=== PATIENT | male | born 1955 | race Caucasian/White ===

== ENCOUNTER 2022-08-23 19:30 | Emergency (ER) | payer MEDICARE, OTHER ==
[~2022-08-23] VITALS: Ht 172.7 cm; Wt 85.3 kg
[2022-08-23] MEDS ORDERED: IV NORMAL SALINE 1000 ML BAG IV ONE (19:45)
[2022-08-23 20:00] LABS: HEMATOCRIT 32.9 % (36.7-47.1); MEAN CORPUSCULAR HEMOGLOBIN 34.5 uug (23.8-33.4); MEAN CORPUSCULAR VOLUME 105.7 fL (73.0-96.2); PLATELET COUNT (AUTO) 80 K/uL (152-348)
[2022-08-23 20:22] LABS: ETHANOL 422 MG/DL (0-0)
[2022-08-23 20:42] LABS: CARBON DIOXIDE 27 mmol/L (21-32); CHLORIDE 109 mmol/L (98-107); CREATININE 0.9 mg/dL (0.6-1.3); GLUCOSE 63 mg/dL (74-106); POTASSIUM 3.2 mmol/L (3.5-5.1); UREA NITROGEN, BLOOD 22 mg/dL (7-18)
[2022-08-23 20:47] LABS: ALANINE AMINOTRANSFERASE 63 U/L (16-63); ALKALINE PHOSPHATASE 92 U/L (50-136); ASPARTATE AMINOTRANSFERASE 93 U/L (15-37); BILIRUBIN,DIRECT 0.2 mg/dL (0.0-0.2); BILIRUBIN,TOTAL 0.6 mg/dL (0.2-1.0)
[2022-08-23 20:48] LABS: ACETAMINOPHEN < 2.0 ug/mL (10-30)
[2022-08-23] MEDS ORDERED: IV D5/ 0.9% NACL 1,000 ML IV ONE (21:00)
[2022-08-23] MEDS ORDERED: MAGNESIUM SULFATE/D5W 100 ML IV SCH (21:00)
[2022-08-23] MEDS ORDERED: POTASSIUM CHLORIDE 20 MEQ TAB.PRT.SR PO ONE (21:00)
[2022-08-23] MEDS ORDERED: POTASSIUM CHLORIDE 20 MEQ TAB.PRT.SR ONE (21:20)
[2022-08-23] MEDS ORDERED: MAGNESIUM SULFATE/D5W 300 ML ONE (21:20)
--- NOTE | 2022-08-23 21:33 | NUR ---
Dr Cleaning canceled 3rd bag of Magnesium
[2022-08-23] MEDS: MAGNESIUM SULFATE/D5W 100 ML IV SCH ×2 (21:34→22:21)
[2022-08-23 21:44] LABS: THYROID STIMULATING HORMONE 0.377 mIU/mL (0.358-3.740)
[2022-08-23] MEDS ORDERED: LORA2TAB95 PO (23:15)
--- NOTE | 2022-08-23 23:15 | NUR ---
called patient's son. Made aware that patient is getting discharged
--- NOTE | 2022-08-23 23:57 | NUR ---
Patient discharged to home in stable condition. Written and verbal after care instructions given. Patient's son verbalizes understanding of instructions. Stressed follow up or return to ER for worsening s/s. Patient is a/ox4, NAD noted, patient is able to walk with steady gait
[2022-08-23 23:58] VITALS: BP 120/81
== END 2022-08-23 23:59 | disposition home or self-care (01) ==
LOC: ER 19:39
DX: F10.229 Alcohol dependence with intoxication, unspecified (principal); Y90.8 Blood alcohol level of 240 mg/100 ml or more; D53.9 Nutritional anemia, unspecified; E87.6 Hypokalemia; E86.0 Dehydration; I48.91 Unspecified atrial fibrillation
CPT/HCPCS: 80076; 80048; 83735; 84443; 85025; 36415; 93005; 99284; 96361; 96365; 96366; 80299; 80320; J3475; J7042; J7040; A4663; G0480